=== PATIENT | male | born 1940 | race Caucasian/White ===

== ENCOUNTER 2018-01-13 08:35 | Inpatient (IN) | payer MEDICARE, BC ==
[~2018-01-13] VITALS: Ht 170.2 cm; Wt 69.4 kg
[2018-01-13] MEDS ORDERED: NEOMY/BACITRA/POLYMYXIN B OINT UD PACKET TP ONE ×2 (08:44→09:00)
[2018-01-13] MEDS ORDERED: MORPHINE SULFATE 4 MG/1 ML DISP.SYRIN ONE ×3 (08:45→09:40)
[2018-01-13] MEDS ORDERED: ONDANSETRON 4 MG/2 ML VIAL ONE (08:45)
[2018-01-13] MEDS ORDERED: GLIP5TAB13 PO (08:53)
[2018-01-13] MEDS ORDERED: CHOL20004 PO (08:53)
[2018-01-13] MEDS ORDERED: ASPI81TA31 PO (08:53)
[2018-01-13] MEDS ORDERED: ROSU5TAB PO (08:53)
[2018-01-13] MEDS ORDERED: IV NORMAL SALINE 500 ML BAG IV ONE (09:00)
[2018-01-13] MEDS ORDERED: ONDANSETRON 4 MG/2 ML VIAL IV ONE (09:00)
[2018-01-13] MEDS ORDERED: MORPHINE SULFATE 2 MG/1 ML DISP.SYRIN IV ONE ×3 (09:00→09:45)
[2018-01-13 09:07] LABS: BASOPHILS # (AUTO) 0.1 K/uL (0.0-8.0); BASOPHILS % (AUTO) 1.2 % (0.0-2.0); EOSINOPHILS # (AUTO) 0.1 K/uL (0.0-0.7); EOSINOPHILS % (AUTO) 1.6 % (0.0-7.0); HEMATOCRIT 42.7 % (36.7-47.1); HEMOGLOBIN 14.7 g/dL (12.5-16.3); LYMPHOCYTES # (AUTO) 1.6 K/uL (20.0-40.0); LYMPHOCYTES % (AUTO) 25.9 % (20.5-51.5); MEAN CORPUSCULAR HEMOGLOBIN 30.4 uug (23.8-33.4); MEAN CORPUSCULAR HGB CONC 34 g/dL (32.5-36.3); MEAN CORPUSCULAR VOLUME 88.4 fL (73.0-96.2); MONOCYTES # (AUTO) 0.5 K/uL (2.0-10.0); MONOCYTES % (AUTO) 8.2 % (0.0-11.0); NEUTROPHILS % (AUTO) 63.1 % (38.5-71.5); PLATELET COUNT (AUTO) 301 K/uL (152-348); RED BLOOD CELL COUNT(AUTO) 4.83 MIL/uL (4.06-5.63); WHITE BLOOD COUNT (AUTO) 6.3 K/uL (3.6-10.2)
[2018-01-13 09:11] LABS: CARBON DIOXIDE 27 mmol/L (21-32); CHLORIDE 101 mmol/L (98-107); CREATININE 1.2 mg/dL (0.6-1.3); GLUCOSE 183 mg/dL (74-106); POTASSIUM 4.4 mmol/L (3.5-5.1); UREA NITROGEN, BLOOD 12 mg/dL (7-18)
[2018-01-13 09:17] LABS: ALANINE AMINOTRANSFERASE 24 U/L (16-63); ALKALINE PHOSPHATASE 62 U/L (50-136); ASPARTATE AMINOTRANSFERASE 18 U/L (15-37); BILIRUBIN,DIRECT 0.1 mg/dL (0.0-0.2); BILIRUBIN,TOTAL 0.5 mg/dL (0.2-1.0); TOTAL PROTEIN, SERUM 7.5 g/dL (6.4-8.2)
--- NOTE | 2018-01-13 09:19 | NUR ---
CALLED [facility]ON FOR ORTHO CONSULT PER PT REQUEST.
--- NOTE | 2018-01-13 09:27 | NUR ---
GRETA Rutherford spoke to Dr Rodríguez for Tele admit.
--- NOTE | 2018-01-13 09:36 | NUR ---
RECEIVED REPORT FROM [facility] Addendum: 01/13/18 at 0937 by OABDI Mechanical fall, L hip Fx. Pt has history of hyperlipidemia and DM. Received 8mg morphine. Receiving 500ml bolus. Hep lock eric 20 R AC. Normal sinus rhythm on tele monitor.
--- NOTE | 2018-01-13 09:40 | NUR ---
PT COMPLAINING OF LEFT WRIST PAIN. MD AT BEDSIDE.
--- NOTE | 2018-01-13 09:45 | NUR ---
DR. CHARLES AT BEDSIDE TALKING TO PT AND PT
[2018-01-13] MEDS ORDERED: HYDROMORPHONE 1 MG/1 ML DISP.SYRIN ONE (09:56)
--- NOTE | 2018-01-13 09:59 | NUR ---
PT TRANSFERED TO FLOOR IN STABLE CONDITION
[2018-01-13] MEDS ORDERED: HYDROMORPHONE 1 MG/1 ML DISP.SYRIN IV ONE (10:00)
[2018-01-13] MEDS ORDERED: MAGNESIUM HYDROXIDE 30 ML LIQUID UDC PO PRN (10:30)
[2018-01-13] MEDS ORDERED: ONDANSETRON 4 MG/2 ML VIAL IV PRN (10:30)
[2018-01-13] MEDS ORDERED: Medication Not On Formulary EA (Rosuvastatin Calcium (Crestor) 1 TAB) PO SCH (10:30)
[2018-01-13] MEDS ORDERED: Z GUARD REMEDY PASTE 57 GM TUBE TOP PRN (10:30)
[2018-01-13] MEDS ORDERED: Medication Not On Formulary EA (Cholecalciferol (Vitamin D3) (Vitamin D CAPSULE) 1 CAP) PO SCH (10:30)
[2018-01-13] MEDS ORDERED: ZOLPIDEM 5 MG TABLET PO PRN (10:30)
[2018-01-13] MEDS: glipiZIDE 5 MG TABLET PO SCH ×3 (11:20→17:44)
[2018-01-13] MEDS: ATORVASTATIN 10 MG TABLET PO SCH ×2 (11:21→12:46)
[2018-01-13 11:59] VITALS: BP 128/81
[2018-01-13] MEDS: IV NS 1000 ML 1,000 ML IV PRN (12:46)
[2018-01-13] MEDS: HYDROMORPHONE 1 MG/1 ML DISP.SYRIN IV PRN ×3 (14:36→22:48)
--- NOTE | 2018-01-13 14:41 | NUR ---
medicated for left hip pain scale 12/25. lunch served. no plan for surgery today Addendum: 01/13/18 at 1442 by JIGNA CONTRERAS RN Amended: Links added.
--- NOTE | 2018-01-13 15:02 | NUR ---
left elbow abrasions cleansed with saline and covered with sterile bordered dressing Addendum: 01/13/18 at 1502 by JIGNA CONTRERAS RN Amended: Links added.
[2018-01-13 15:53] VITALS: BP 140/87
[2018-01-13] MEDS ORDERED: hydrALAZINE HCL 25 MG TABLET PO PRN (16:45)
--- NOTE | 2018-01-13 16:45 | NUR ---
report given to Sandra WRIGHT Addendum: 01/13/18 at 1715 by JIGNA CONTRERAS RN Amended: Links added.
[2018-01-13 19:52] VITALS: BP 128/85
--- NOTE | 2018-01-13 20:00 | NUR ---
RECEIVED PT ALERT AND ORIENTED X 3, IN NO ACUTE DISTRESS AT THIS TIME. PAIN MANAGEMENT WILL BE PROVIDED ORDERED. PT MADE AWARE OF PLAN OF CARE AND PLAN FOR SURGERY OF LEFT HIP IN AM. TELE MONITOR SINUS RHYTHM. WILL CONTINUE TO MONITOR AND OBTAIN CONSENT FOR PLANNED PROCEDURE WITH DR. ISLAS.
--- NOTE | 2018-01-13 21:30 | NUR ---
Pt signed consent for IM nailing of left femur fracture. Pt aware that he should be NPO after midnight.
[2018-01-14] VITALS (7 sets, daily range): BP systolic 121–154; BP diastolic 71–87
[2018-01-14] MEDS: HYDROMORPHONE 1 MG/1 ML DISP.SYRIN IV PRN ×2 (03:11→06:39)
[2018-01-14] MEDS: IV NS 1000 ML 1,000 ML IV PRN ×2 (03:11→21:13)
[2018-01-14 05:49] LABS: BASOPHILS # (AUTO) 0.1 K/uL (0.0-8.0); EOSINOPHILS % (AUTO) 0.6 % (0.0-7.0); HEMATOCRIT 35.3 % (36.7-47.1); HEMOGLOBIN 12.5 g/dL (12.5-16.3); LYMPHOCYTES # (AUTO) 1.4 K/uL (20.0-40.0); LYMPHOCYTES % (AUTO) 16.4 % (20.5-51.5); MEAN CORPUSCULAR HGB CONC 36 g/dL (32.5-36.3); MEAN CORPUSCULAR VOLUME 87.4 fL (73.0-96.2); MONOCYTES # (AUTO) 0.8 K/uL (2.0-10.0); MONOCYTES % (AUTO) 8.9 % (0.0-11.0); NEUTROPHILS # (AUTO) 6.2 K/uL (1.8-8.9); NEUTROPHILS % (AUTO) 73.1 % (38.5-71.5); PLATELET COUNT (AUTO) 251 K/uL (152-348); RED BLOOD CELL COUNT(AUTO) 4.04 MIL/uL (4.06-5.63); WHITE BLOOD COUNT (AUTO) 8.4 K/uL (3.6-10.2)
--- NOTE | 2018-01-14 06:00 | NUR ---
Pt kept NPO after midnight. Pain management provided as ordered. No s/s of acute distress. Pt aware of scheduled surgery at 0800. Safe environment implemented.
[2018-01-14 06:12] LABS: ALANINE AMINOTRANSFERASE 24 U/L (16-63); ALKALINE PHOSPHATASE 54 U/L (50-136); ASPARTATE AMINOTRANSFERASE 16 U/L (15-37); BILIRUBIN,TOTAL 0.6 mg/dL (0.2-1.0); CARBON DIOXIDE 26 mmol/L (21-32); CHLORIDE 99 mmol/L (98-107); CHOLESTEROL 117 mg/dL (<200); GLUCOSE 145 mg/dL (74-106); HDL CHOLESTEROL 52 mg/dL (40-60); MAGNESIUM 1.8 mg/dL (1.8-2.4); PHOSPHOROUS 3.4 mg/dL (2.5-4.9); POTASSIUM 4.2 mmol/L (3.5-5.1); TOTAL PROTEIN, SERUM 6.3 g/dL (6.4-8.2); TRIGLYCERIDES 65 MG/DL (30-150); UREA NITROGEN, BLOOD 10 mg/dL (7-18)
[2018-01-14 06:33] LABS: THYROID STIMULATING HORMONE 1.288 mIU/mL (0.358-3.740)
--- NOTE | 2018-01-14 07:30 | NUR ---
AWAKE ALERT AND VERBALLY RESPONSIVE ORIENTED X3, AT BEDSIDE . NO SIGNS OF PAIN OR DISTRESS. NPO FOR IM NAILING BY DR ISLAS AT 0800. NPO WITH NS AT 75 MLS/HR
--- NOTE | 2018-01-14 07:46 | NUR ---
TO OR WITH OR STAFF VIA BED. SR ON MONITOR
[2018-01-14] MEDS: glipiZIDE 5 MG TABLET PO SCH (08:30)
[2018-01-14] MEDS: CHOLECALCIFEROL 1,000 UNIT TABLET PO SCH (08:30)
[2018-01-14] MEDS ORDERED: FENTANYL CITRATE 100 MCG/2 ML AMPUL ONE (10:19)
[2018-01-14] MEDS ORDERED: GLIP5TAB13 PO (10:29)
[2018-01-14] MEDS ORDERED: DEXTROSE 50% 50 ML DISP.SYRIN IV PRN (10:30)
[2018-01-14] MEDS ORDERED: BISACODYL 5 MG TABLET.DR PO PRN (10:45)
[2018-01-14] MEDS ORDERED: FLEET ENEMA 133 ML BOTTLE RC PRN (10:45)
[2018-01-14] MEDS ORDERED: IV NS 1000 ML 1,000 ML IV ONE (10:45)
[2018-01-14] MEDS ORDERED: HYDROMORPHONE 1 MG/1 ML DISP.SYRIN ONE (10:51)
--- NOTE | 2018-01-14 12:00 | NUR ---
BACK FROM RECOVERY AWAKE AND VERBALLY RESPONSIVE WITH O2 AT 2L NC SATURATING 95%. LEFT HIP INCISION WITH DRESSING INTACT NOTED WITH MODERATE AMOUNT OF SEROUS DRAINAGE. GOOD PEDAL PULSES
[2018-01-14] MEDS ORDERED: SEVOFLURANE 250 ML BOTTLE IH ONE (12:10)
[2018-01-14] MEDS ORDERED: ONDANSETRON 4 MG/2 ML VIAL IV ONE (12:10)
[2018-01-14] MEDS ORDERED: CEFAZOLIN 1 G VIAL MC ONE (12:10)
[2018-01-14] MEDS ORDERED: IV NORMAL SALINE 1000 ML BAG IV ONE (12:10)
[2018-01-14] MEDS ORDERED: EPHEDRINE SULFATE 50 MG/ML AMPUL MC ONE (12:10)
[2018-01-14] MEDS ORDERED: DEXAMETHASONE SOD PHOSPHATE 4 MG INJ IV ONE (12:10)
[2018-01-14] MEDS ORDERED: PROPOFOL 200 MG/20 ML BOTTLE IV ONE (12:10)
[2018-01-14] MEDS ORDERED: LIDOCAINE-MPF 2% 5 ML VIAL MC ONE (12:10)
[2018-01-14] MEDS: BLOOD SUGAR DIAGNOSTIC 1 EACH STRIP VI SCH ×3 (12:14→21:02)
[2018-01-14] MEDS: INSULIN REGULAR, HUMAN 300 UNIT/3 ML VIAL SQ PRN ×3 (12:16→21:14)
--- NOTE | 2018-01-14 14:07 | NUR ---
DRESSING CHANGED BY RECOVERY NURSE
[2018-01-14] MEDS: CEFAZOLIN 1 G in PREMIXED 1 EACH IV SCH (16:31)
--- NOTE | 2018-01-14 17:18 | NUR ---
NO SS OF ACUTE PAIN OR DISTRESS, PAIN MANAGEMENT STATUS POST IM NAILING. PLAN TO START PHYSICAL THERAPY IN AM PER ORTHO
[2018-01-14] MEDS: ATORVASTATIN 10 MG TABLET PO SCH (21:02)
[2018-01-14] MEDS: DOCUSATE SODIUM 100 MG CAPSULE PO SCH (21:02)
[2018-01-15] MEDS: MORPHINE SULFATE 4 MG/1 ML DISP.SYRIN IV PRN ×3 (00:03→13:35)
[2018-01-15 00:36] VITALS: BP 113/66
[2018-01-15] MEDS: CEFAZOLIN 1 G in PREMIXED 1 EACH IV SCH (00:42)
[2018-01-15 04:36] VITALS: BP 120/70
[2018-01-15 06:22] LABS: BASOPHILS % (AUTO) 0.4 % (0.0-2.0); EOSINOPHILS % (AUTO) 0.1 % (0.0-7.0); HEMATOCRIT 31.7 % (36.7-47.1); HEMOGLOBIN 10.9 g/dL (12.5-16.3); LYMPHOCYTES # (AUTO) 1.5 K/uL (20.0-40.0); LYMPHOCYTES % (AUTO) 15.8 % (20.5-51.5); MEAN CORPUSCULAR HEMOGLOBIN 30.4 uug (23.8-33.4); MEAN CORPUSCULAR HGB CONC 34 g/dL (32.5-36.3); MEAN CORPUSCULAR VOLUME 88.3 fL (73.0-96.2); MONOCYTES # (AUTO) 1.3 K/uL (2.0-10.0); MONOCYTES % (AUTO) 13.7 % (0.0-11.0); NEUTROPHILS # (AUTO) 6.5 K/uL (1.8-8.9); PLATELET COUNT (AUTO) 236 K/uL (152-348); WHITE BLOOD COUNT (AUTO) 9.2 K/uL (3.6-10.2)
[2018-01-15] MEDS: BLOOD SUGAR DIAGNOSTIC 1 EACH STRIP VI SCH (06:38)
[2018-01-15 06:41] LABS: CARBON DIOXIDE 28 mmol/L (21-32); CHLORIDE 103 mmol/L (98-107); GLUCOSE 138 mg/dL (74-106); PHOSPHOROUS 3.3 mg/dL (2.5-4.9); POTASSIUM 4.4 mmol/L (3.5-5.1); UREA NITROGEN, BLOOD 9 mg/dL (7-18)
[2018-01-15] MEDS ORDERED: MIRALAX 17 GM POWD.PACK PO PRN (08:00)
[2018-01-15] MEDS: glipiZIDE 5 MG TABLET PO SCH ×3 (08:58→17:00)
[2018-01-15] MEDS: ASPIRIN 81 MG TAB.CHEW PO SCH (08:58)
[2018-01-15] MEDS: CHOLECALCIFEROL 1,000 UNIT TABLET PO SCH (08:58)
[2018-01-15] MEDS: DOCUSATE SODIUM 100 MG CAPSULE PO SCH ×2 (08:58→20:43)
[2018-01-15 11:47] VITALS: BP 118/73
[2018-01-15 15:24] VITALS: BP 127/73
[2018-01-15 17:08] VITALS: BP 147/81
[2018-01-15] MEDS: ACETAMINOPHEN 325 MG TABLET PO PRN (17:42)
[2018-01-15] MEDS: HYDROCODONE/APAP 10-325 MG TABLET PO PRN (17:45)
[2018-01-15] MEDS: IV NS 1000 ML 1,000 ML IV PRN (19:42)
[2018-01-15 19:59] VITALS: BP 103/56
[2018-01-15] MEDS: ATORVASTATIN 10 MG TABLET PO SCH (20:43)
[2018-01-16] MEDS: HYDROCODONE/APAP 10-325 MG TABLET PO PRN (03:14)
[2018-01-16 05:04] VITALS: BP 105/67
--- NOTE | 2018-01-16 05:27 | NUR ---
Patient rested well in between care; offered turned q2h; but sometimes refusing; educated patient regarding regular turning; MOM given last night for constipation; medicated x1 Kayla this AM; will d/c john edwards this AM.
--- NOTE | 2018-01-16 06:31 | NUR ---
Rosa removed aseptically; dressing changed to left hip; continue to monitor; will endorse.
[2018-01-16 06:55] LABS: BASOPHILS # (AUTO) 0.1 K/uL (0.0-8.0); BASOPHILS % (AUTO) 0.9 % (0.0-2.0); EOSINOPHILS % (AUTO) 0.4 % (0.0-7.0); HEMATOCRIT 31.7 % (36.7-47.1); HEMOGLOBIN 10.9 g/dL (12.5-16.3); LYMPHOCYTES # (AUTO) 1.9 K/uL (20.0-40.0); MEAN CORPUSCULAR HEMOGLOBIN 30.4 uug (23.8-33.4); MEAN CORPUSCULAR HGB CONC 35 g/dL (32.5-36.3); MEAN CORPUSCULAR VOLUME 88.1 fL (73.0-96.2); MONOCYTES # (AUTO) 1.1 K/uL (2.0-10.0); MONOCYTES % (AUTO) 11.1 % (0.0-11.0); NEUTROPHILS # (AUTO) 6.8 K/uL (1.8-8.9); NEUTROPHILS % (AUTO) 68.6 % (38.5-71.5); PLATELET COUNT (AUTO) 243 K/uL (152-348); RED BLOOD CELL COUNT(AUTO) 3.59 MIL/uL (4.06-5.63); WHITE BLOOD COUNT (AUTO) 9.9 K/uL (3.6-10.2)
[2018-01-16 07:15] LABS: CARBON DIOXIDE 29 mmol/L (21-32); CHLORIDE 100 mmol/L (98-107); GLUCOSE 156 mg/dL (74-106); PHOSPHOROUS 2.9 mg/dL (2.5-4.9); POTASSIUM 4.2 mmol/L (3.5-5.1); UREA NITROGEN, BLOOD 13 mg/dL (7-18)
[2018-01-16] MEDS ORDERED: IV NS 1000 ML 1,000 ML IV PRN (07:31)
[2018-01-16] MEDS: CHOLECALCIFEROL 1,000 UNIT TABLET PO SCH (08:25)
[2018-01-16] MEDS: glipiZIDE 5 MG TABLET PO SCH ×2 (08:25→12:06)
[2018-01-16] MEDS: DOCUSATE SODIUM 100 MG CAPSULE PO SCH (08:25)
[2018-01-16] MEDS: ASPIRIN 81 MG TAB.CHEW PO SCH (08:25)
[2018-01-16] MEDS: MORPHINE SULFATE 4 MG/1 ML DISP.SYRIN IV PRN (09:18)
[2018-01-16 11:39] VITALS: BP 119/63
[2018-01-16] MEDS ORDERED: ATOR10TA PO (11:42)
[2018-01-16] MEDS ORDERED: POLY17PO4 PO (11:42)
[2018-01-16] MEDS ORDERED: HYDR-4354 PO (11:42)
[2018-01-16] MEDS ORDERED: HYDR25TA86 PO (11:42)
[2018-01-16] MEDS ORDERED: MENT71OI TOP (11:42)
[2018-01-16] MEDS ORDERED: Morphine Sulfate Inj IV (11:42)
[2018-01-16] MEDS ORDERED: GLIP5TAB13 PO (11:42)
[2018-01-16] MEDS ORDERED: ONDA4VIA23 IV (11:42)
[2018-01-16] MEDS ORDERED: CHOL10002 PO (11:42)
[2018-01-16] MEDS ORDERED: MAGN400O6 PO (11:42)
[2018-01-16] MEDS ORDERED: Sodium Phosphate Fleet RC (11:42)
[2018-01-16] MEDS ORDERED: ZOLP5TAB8 PO (11:42)
[2018-01-16] MEDS ORDERED: ACET325T53 PO (11:42)
[2018-01-16] MEDS ORDERED: DOCU100C36 PO (11:42)
[2018-01-16] MEDS ORDERED: BISA5TAB13 PO (11:42)
[2018-01-16] MEDS: ACETAMINOPHEN 325 MG TABLET PO PRN (14:27)
--- NOTE | 2018-01-16 15:00 | NUR ---
PT REFUSED TO HAVE PICTURES TAKEN AT THIS TIME. PER ASSESSMENT, THE WOUNDS WERE ON BILATERAL ELBOWS AND LEFT KNEE ARE SCABED OVER, CLEAN, NO DRAINAGE.
--- NOTE | 2018-01-16 15:15 | NUR ---
Pt DC to ARU, pt is stable to dc and was dc with all exit care packet and belongings. ID band removed, incision area is clean with no signs of redness and discharge. Report given to ARU nurse. Pt transferred via bed.
[2018-01-16] MEDS ORDERED: BLOOD SUGAR DIAGNOSTIC 1 EACH STRIP VI SCH (16:30)
== END 2018-01-16 15:15 | DRG 481 ==
LOC: ER 08:35 → MED 09:43 → TELE 10:30 → MED 01-15 16:29
PROVIDERS: ADMIT Internal Medicine; ATTEND Internal Medicine
PROC: 0QS706Z Reposition Left Upper Femur with Intramedullary Internal Fixation Device, Open Approach (ICD-10-PCS; principal; 2018-01-14 08:40)
DX: S72.142A Displaced intertrochanteric fracture of left femur, initial encounter for closed fracture (principal); E87.1 Hypo-osmolality and hyponatremia; E44.1 Mild protein-calorie malnutrition; E11.65 Type 2 diabetes mellitus with hyperglycemia; E78.5 Hyperlipidemia, unspecified; E83.51 Hypocalcemia; E86.0 Dehydration; I10 Essential (primary) hypertension; M19.90 Unspecified osteoarthritis, unspecified site; Z79.84 Long term (current) use of oral hypoglycemic drugs; W19.XXXA Unspecified fall, initial encounter; Y93.9 Activity, unspecified; Y92.69 Other specified industrial and construction area as the place of occurrence of the external cause; E88.09 Other disorders of plasma-protein metabolism, not elsewhere classified; Z68.24 Body mass index [BMI] 24.0-24.9, adult
CPT/HCPCS: 36415; 70030-TC; 71045; 72170; 73110; 73502; 73503; 73551; 83735; 84100; 84443; 85025; 85730; 93005; 97110; 97530; A4649; A4663; C1713; C1769; G0378; J0690; J1100; J1170; J2270; J2405; J3010; J3490; J7030; J7040

== ENCOUNTER 2018-01-16 15:38 | Inpatient (IN) | payer MEDICARE, BC ==
[~2018-01-16] VITALS: Ht 170.2 cm; Wt 69.4 kg
[~2018-01-16 15:38] MED LIST: ACET325T53 PO; ASPI81TA31 PO; ATOR10TA PO; BISA5TAB13 PO; CHOL10002 PO; CHOL20004 PO; DOCU100C36 PO; GLIP5TAB13 PO; HYDR-4354 PO; HYDR25TA86 PO; MAGN400O6 PO; MENT71OI TOP; Morphine Sulfate Inj IV; ONDA4VIA23 IV; POLY17PO4 PO; ROSU5TAB PO; Sodium Phosphate Fleet RC; ZOLP5TAB8 PO
--- NOTE | 2018-01-16 15:40 | NUR ---
ADMITTED TO UNIT FROM MED SURG. BROUGHT DOWN IN BED WITH AT BEDSIDE. VSS 02 SAT 94% ON ROOM AIR. NO C/O PAIN OR DISTRESS NOTED. ORIENTED TO ROOM AND SURROUNDINGS
[2018-01-16] MEDS ORDERED: MAGNESIUM HYDROXIDE 30 ML LIQUID UDC PO PRN ×2 (15:45→17:45)
[2018-01-16] MEDS ORDERED: Z GUARD REMEDY PASTE 57 GM TUBE TOP PRN ×2 (15:45→18:00)
[2018-01-16] MEDS ORDERED: ONDANSETRON 4 MG/2 ML VIAL IV PRN ×2 (15:45→17:45)
[2018-01-16] MEDS ORDERED: ACETAMINOPHEN 325 MG TABLET PO PRN ×2 (15:45→17:45)
[2018-01-16 16:14] VITALS: BP 120/66
[2018-01-16] MEDS ORDERED: HYDROCODONE/APAP 10-325 MG TABLET PO PRN (17:45)
[2018-01-16] MEDS ORDERED: THERAHONEY GEL 1.5 OZ TUBE TOP PRN (17:45)
[2018-01-16] MEDS ORDERED: MORPHINE SULFATE 2 MG/1 ML DISP.SYRIN IV PRN (17:45)
[2018-01-16] MEDS ORDERED: hydrALAZINE HCL 25 MG TABLET PO PRN (17:45)
[2018-01-16] MEDS ORDERED: MIRALAX 17 GM POWD.PACK PO PRN (17:45)
[2018-01-16] MEDS ORDERED: BISACODYL 5 MG TABLET.DR PO PRN (17:45)
[2018-01-16] MEDS ORDERED: ZOLPIDEM 5 MG TABLET PO PRN (17:45)
--- NOTE | 2018-01-16 20:05 | NUR ---
Patient received in bed. AAO X4. No acute distress or SOB noted. Able to makes needs known. On room air. His family were at the bedside. Brief assessment done. No Complain of pain at this time. Has IV line on his LT forearm G 22. No sign of inflammation noted. Safety measures maintained. Bed in low position, brake on, side rails upx2. Call light and personal belongings within reach. Continue to monitor.
[2018-01-16 20:13] VITALS: BP 140/78
[2018-01-16] MEDS: DOCUSATE SODIUM 100 MG CAPSULE PO SCH (20:26)
[2018-01-16] MEDS: ATORVASTATIN 10 MG TABLET PO SCH (20:26)
[2018-01-16] MEDS ORDERED: DOCUSATE SODIUM 100 MG CAPSULE PO SCH (21:00)
[2018-01-16] MEDS ORDERED: BLOOD SUGAR DIAGNOSTIC 1 EACH STRIP VI SCH (21:00)
[2018-01-16] MEDS: HYDROCODONE/APAP 5-325MG TABLET PO PRN (21:52)
[2018-01-16] MEDS ORDERED: DEXTROSE 50% 50 ML DISP.SYRIN IV PRN (22:45)
--- NOTE | 2018-01-16 23:00 | NUR ---
Patient has BS 170 without any order for Insulin and related sliding scale. Called [facility] and contacted on-call Doctor, Dr. Iglesia Sev[place]. Dr. Parekh put the new order of sliding scale. Continue to monitor.
[2018-01-17 06:12] VITALS: BP 125/68
--- NOTE | 2018-01-17 06:30 | NUR ---
Patient developed high heart rate 120-135, BP: 125/65, RR:19, T: 98.2, O2 Sat: 96%. Patient was stable, AAO x4, pain level at tolerable level. Notified Dr. Hurtado about patient condition. No order was given. Continue to monitor.
[2018-01-17] MEDS: PANTOPRAZOLE SODIUM 40 MG TABLET.DR PO SCH (06:38)
[2018-01-17] MEDS: HYDROCODONE/APAP 5-325MG TABLET PO PRN ×2 (06:39→21:32)
[2018-01-17] MEDS: BLOOD SUGAR DIAGNOSTIC 1 EACH STRIP VI SCH ×4 (06:46→20:31)
--- NOTE | 2018-01-17 06:50 | NUR ---
Patient checked again, still same with no change, high heart rate 120-135. Pain is 6 out of 10. pain medication given. Continue monitor and will endorse to the day shift nurse.
[2018-01-17 07:46] LABS: BASOPHILS # (AUTO) 0.1 K/uL (0.0-8.0); BASOPHILS % (AUTO) 0.7 % (0.0-2.0); EOSINOPHILS % (AUTO) 0.5 % (0.0-7.0); HEMATOCRIT 31.3 % (36.7-47.1); HEMOGLOBIN 10.7 g/dL (12.5-16.3); LYMPHOCYTES # (AUTO) 1.2 K/uL (20.0-40.0); LYMPHOCYTES % (AUTO) 13.2 % (20.5-51.5); MEAN CORPUSCULAR HEMOGLOBIN 30.3 uug (23.8-33.4); MEAN CORPUSCULAR HGB CONC 34 g/dL (32.5-36.3); MONOCYTES # (AUTO) 0.7 K/uL (2.0-10.0); MONOCYTES % (AUTO) 8.3 % (0.0-11.0); NEUTROPHILS # (AUTO) 6.8 K/uL (1.8-8.9); NEUTROPHILS % (AUTO) 77.3 % (38.5-71.5); PLATELET COUNT (AUTO) 258 K/uL (152-348); RED BLOOD CELL COUNT(AUTO) 3.51 MIL/uL (4.06-5.63); WHITE BLOOD COUNT (AUTO) 8.8 K/uL (3.6-10.2)
[2018-01-17 08:00] VITALS: BP 121/77
[2018-01-17 08:01] LABS: CARBON DIOXIDE 27 mmol/L (21-32); CHLORIDE 98 mmol/L (98-107); CHOLESTEROL 103 mg/dL (<200); GLUCOSE 146 mg/dL (74-106); HDL CHOLESTEROL 46 mg/dL (40-60); MAGNESIUM 2.1 mg/dL (1.8-2.4); PHOSPHOROUS 3.1 mg/dL (2.5-4.9); TRIGLYCERIDES 65 MG/DL (30-150); UREA NITROGEN, BLOOD 13 mg/dL (7-18)
[2018-01-17] MEDS: CHOLECALCIFEROL 1,000 UNIT TABLET PO SCH (08:40)
[2018-01-17] MEDS: ASPIRIN 81 MG TAB.CHEW PO SCH (08:40)
[2018-01-17] MEDS: glipiZIDE 5 MG TABLET PO SCH ×3 (08:41→16:32)
[2018-01-17] MEDS: INSULIN REGULAR, HUMAN 300 UNIT/3 ML VIAL SQ PRN ×4 (08:43→20:35)
--- NOTE | 2018-01-17 14:02 | NUR ---
INTERDISCIPLINARY TEAM CONFERENCE
--- NOTE | 2018-01-17 14:28 | NUR ---
Received an order from Dr. Ramos for Gordo QUICK.
--- NOTE | 2018-01-17 14:30 | NUR ---
Notified GREEN PROMOTIONS SPECIALIST Fitz Baumann who made his rounds regarding report of night order selector nurse that pt had episode of tachycardia. Per GREEN PROMOTIONS SPECIALIST will continue to monitor HR is ok at this time.
[2018-01-17 16:00] VITALS: BP 143/76
[2018-01-17] MEDS: GLUCERNA SHAKE VANILLA 237 ML CAN PO SCH (17:27)
--- NOTE | 2018-01-17 18:50 | NUR ---
Patient noted with fever 100.8 given tylenol PRN as ordered which lowered temp to 99.3. Also patient complained of SOB, BP 121/69, HR 96. O2 sat 96% at room air, RR 19. No complain of any pain. Put patient on O2 via NC at 2LPM for comfort and per patient he is relieved. Notified ELECTRICAL ELECTRONICS ENGINEERS Fitz Baumann and said he already put orders in.
[2018-01-17] MEDS ORDERED: ALBUTEROL SULFATE 2.5 MG/3 ML NEBU NEB PRN (19:15)
[2018-01-17 20:08] VITALS: BP 142/79
[2018-01-17 20:17] LABS: BASOPHILS # (AUTO) 0.1 K/uL (0.0-8.0); BASOPHILS % (AUTO) 0.8 % (0.0-2.0); EOSINOPHILS # (AUTO) 0.1 K/uL (0.0-0.7); EOSINOPHILS % (AUTO) 1.1 % (0.0-7.0); HEMATOCRIT 29.8 % (36.7-47.1); HEMOGLOBIN 10.4 g/dL (12.5-16.3); LYMPHOCYTES # (AUTO) 1.5 K/uL (20.0-40.0); LYMPHOCYTES % (AUTO) 18.7 % (20.5-51.5); MEAN CORPUSCULAR HEMOGLOBIN 30.7 uug (23.8-33.4); MEAN CORPUSCULAR HGB CONC 35 g/dL (32.5-36.3); MEAN CORPUSCULAR VOLUME 87.6 fL (73.0-96.2); MONOCYTES # (AUTO) 0.7 K/uL (2.0-10.0); MONOCYTES % (AUTO) 9.2 % (0.0-11.0); NEUTROPHILS # (AUTO) 5.6 K/uL (1.8-8.9); NEUTROPHILS % (AUTO) 70.2 % (38.5-71.5); PLATELET COUNT (AUTO) 288 K/uL (152-348)
[2018-01-17 20:18] LABS: CARBON DIOXIDE 28 mmol/L (21-32); CHLORIDE 98 mmol/L (98-107); CREATININE 1.1 mg/dL (0.6-1.3); GLUCOSE 156 mg/dL (74-106); UREA NITROGEN, BLOOD 14 mg/dL (7-18)
[2018-01-17] MEDS: ATORVASTATIN 10 MG TABLET PO SCH (20:31)
[2018-01-17] MEDS: DOCUSATE SODIUM 100 MG CAPSULE PO SCH (20:31)
--- NOTE | 2018-01-17 20:54 | NUR ---
Received pt at beginning of shift in bed, AAO x 4 with family member at bedside. No acute distress noted. Verbally responsive and able to make needs known. Noted with TMAX 99.3 F at beginning of shift, re-checked at noted to be 98.6 F orally. VSS. All safety measures and fall precautions maintained. C/O "tolerable" pain on left hip. Call light and all personal belongings within reach. Will continue to monitor.
[2018-01-17] MEDS ORDERED: IV NORMAL SALINE 500 ML BAG IV ONE (22:20)
[2018-01-18 00:15] LABS: *BILIRUBIN,URIN NEGATIVE (NEGATIVE); *BLOOD, URINE NEGATIVE (NEGATIVE); *CLARITY,URINE CLEAR (CLEAR); *COLOR,URINE YELLOW (YELLOW); *KETONES,URINE NEGATIVE (NEGATIVE); *PROTEIN,URINE NEGATIVE (NEGATIVE); *UROBILINOGEN,URINE 0.2 E.U./dl (NORMAL); LEUKOCYTE ESTERASE ,URINE NEGATIVE (NEGATIVE); NITRITE, URINE NEGATIVE (NEGATIVE); UGLUCOSE NEGATIVE (NEGATIVE)
[2018-01-18 00:37] LABS: BACTERIA,URINE NONE SEEN /HPF (NONE SEEN); RBC,URINE NONE SEEN /HPF (0-3); SQUAMOUS EPITHELIAL CELL,UR MANY /HPF (NONE SEEN); WBC,URINE NONE SEEN /HPF (0-3)
[2018-01-18 05:49] VITALS: BP 142/73
[2018-01-18] MEDS: PANTOPRAZOLE SODIUM 40 MG TABLET.DR PO SCH (06:03)
[2018-01-18] MEDS: BLOOD SUGAR DIAGNOSTIC 1 EACH STRIP VI SCH ×4 (06:56→21:29)
--- NOTE | 2018-01-18 08:00 | NUR ---
Patient awake, alert, not in any form of acute distress. He denies any pain or discomfort at this time. Call light placed within reach. Assisted with his needs.
[2018-01-18 08:17] VITALS: BP 120/77
[2018-01-18] MEDS: CHOLECALCIFEROL 1,000 UNIT TABLET PO SCH (08:39)
[2018-01-18] MEDS: glipiZIDE 5 MG TABLET PO SCH ×3 (08:39→17:07)
[2018-01-18] MEDS: ASPIRIN 81 MG TAB.CHEW PO SCH (08:39)
[2018-01-18] MEDS: HYDROCODONE/APAP 5-325MG TABLET PO PRN (08:41)
[2018-01-18] MEDS: INSULIN REGULAR, HUMAN 300 UNIT/3 ML VIAL SQ PRN ×4 (08:51→21:38)
[2018-01-18] MEDS: GLUCERNA SHAKE VANILLA 237 ML CAN PO SCH ×3 (08:53→17:09)
[2018-01-18] MEDS ORDERED: NORMAL SALINE NASAL 45 ML BOTTLE NS PRN (14:00)
[2018-01-18] MEDS: HYDROCODONE/APAP 5-325MG TABLET PO SCH ×2 (17:08→21:19)
[2018-01-18 20:00] VITALS: BP 137/74
--- NOTE | 2018-01-18 20:50 | NUR ---
Patient received in bed. AAO X4. No acute distress or SOB noted. Able to makes needs known. On room air. His family were at the bedside. Brief assessment done. No Complain of pain at this time. Has IV line on his LT forearm G 22. No sign of inflammation noted. His family asking to transfer the patient to the dinning room to sit with them for dinner. Assisted patient to the dinning room via wheelchair. Safety measures maintained. After half an hour, assisted patient to the bed. Put DVT pump in place. Bed in low position, brake on, side rails upx2. Call light and personal belongings within reach. Continue to monitor.
[2018-01-18] MEDS: DOCUSATE SODIUM 100 MG CAPSULE PO SCH (21:19)
[2018-01-18] MEDS: ATORVASTATIN 10 MG TABLET PO SCH (21:19)
[2018-01-19] MEDS: ZOLPIDEM 5 MG TABLET PO PRN (01:58)
--- NOTE | 2018-01-19 06:00 | NUR ---
New dressing applied with bordered gauze. No sign and symptom of infection at surgical site. Yoan are intact. Surgical site kept clean and dry. Will continue to monitor.
[2018-01-19] MEDS: PANTOPRAZOLE SODIUM 40 MG TABLET.DR PO SCH (06:52)
[2018-01-19] MEDS: BLOOD SUGAR DIAGNOSTIC 1 EACH STRIP VI SCH ×4 (07:04→20:59)
--- NOTE | 2018-01-19 07:28 | NUR ---
End of the shift note Patient was stable last night. VS stable. No sign of acute distress or SOB noted. On room air. Complained of pain, PRN pain medication was given. Medication given as ordered. Dressing changed. Safety measures maintained. Accucheck done, @ 2100 BS: 163 with 3 units insulin coverage based on sliding scale, @ 0700 BS: 138.Fall precaution maintained. kept him clean and dry. All needs attended promptly. Bed brake and alarm on, side rails upx2. Call light and personal belonging within reach. Continue to monitor and will endorse to the day shift nurse accordingly.
[2018-01-19 07:39] VITALS: BP 136/77
[2018-01-19] MEDS: HYDROCODONE/APAP 5-325MG TABLET PO SCH ×4 (08:18→21:01)
[2018-01-19] MEDS: glipiZIDE 5 MG TABLET PO SCH ×3 (08:18→17:23)
[2018-01-19] MEDS: CHOLECALCIFEROL 1,000 UNIT TABLET PO SCH (08:18)
[2018-01-19] MEDS: ASPIRIN 81 MG TAB.CHEW PO SCH (08:19)
[2018-01-19] MEDS: GLUCERNA SHAKE VANILLA 237 ML CAN PO SCH ×3 (08:29→17:28)
[2018-01-19] MEDS: INSULIN REGULAR, HUMAN 300 UNIT/3 ML VIAL SQ PRN ×3 (12:10→21:05)
--- NOTE | 2018-01-19 16:01 | NUR ---
INTERDISCIPLINARY TEAM CONFERENCE
[2018-01-19 16:07] VITALS: BP 121/70
--- NOTE | 2018-01-19 19:15 | NUR ---
Received patient in bed. at bedside. Alert and verbally responsive. Able to make needs known. Denies any pain and discomfort. No acute distress. No SOB. Surgery site dressing is clean and intact. No s/s of drainage. Bruising noted at site. IV on left lower forearm. Patent and intact. Kept clean and dry. All needs attended to promptly. Call light within reach. Will continue to monitor.
[2018-01-19 20:00] VITALS: BP 133/82
[2018-01-19] MEDS: DOCUSATE SODIUM 100 MG CAPSULE PO SCH (21:00)
[2018-01-19] MEDS: ATORVASTATIN 10 MG TABLET PO SCH (21:00)
[2018-01-20] MEDS: HYDROCODONE/APAP 5-325MG TABLET PO PRN (01:32)
[2018-01-20 05:47] VITALS: BP 126/83
[2018-01-20] MEDS: PANTOPRAZOLE SODIUM 40 MG TABLET.DR PO SCH (06:31)
[2018-01-20] MEDS: BLOOD SUGAR DIAGNOSTIC 1 EACH STRIP VI SCH ×4 (06:33→20:36)
--- NOTE | 2018-01-20 06:46 | NUR ---
Patient slept comfortably throughout the night. No c/o pain and discomfort. No acute distress. No SOB. Kept clean and dry. VS stable. BS 140. Will endorse to day shift nurse. All needs attended to promptly. Call light within reach. Will continue to monitor.
[2018-01-20] MEDS: HYDROCODONE/APAP 5-325MG TABLET PO SCH ×4 (08:34→20:27)
[2018-01-20] MEDS: CHOLECALCIFEROL 1,000 UNIT TABLET PO SCH (08:34)
[2018-01-20] MEDS: ASPIRIN 81 MG TAB.CHEW PO SCH (08:35)
[2018-01-20] MEDS: glipiZIDE 5 MG TABLET PO SCH ×3 (08:35→17:09)
[2018-01-20] MEDS: GLUCERNA SHAKE VANILLA 237 ML CAN PO SCH ×3 (08:43→17:00)
[2018-01-20] MEDS: INSULIN REGULAR, HUMAN 300 UNIT/3 ML VIAL SQ PRN (12:06)
[2018-01-20 18:16] VITALS: BP 155/75
--- NOTE | 2018-01-20 20:03 | NUR ---
Patient received in bed. AAO X4. No acute distress or SOB noted. Able to makes needs known. On room air. His family were at the bedside. Brief assessment done. VS stable. Complained of a tolerable pain at this time. No sign of inflammation noted. Safety measures maintained. Put DVT pump in place. Bed in low position, brake on, side rails upx2. Call light and personal belongings within reach. Continue to monitor.
[2018-01-20 20:09] VITALS: BP 140/78
[2018-01-20] MEDS: ATORVASTATIN 10 MG TABLET PO SCH (20:27)
[2018-01-20] MEDS: DOCUSATE SODIUM 100 MG CAPSULE PO SCH (20:27)
[2018-01-21] MEDS: ZOLPIDEM 5 MG TABLET PO PRN (01:44)
[2018-01-21 05:58] VITALS: BP 131/76
[2018-01-21] MEDS: PANTOPRAZOLE SODIUM 40 MG TABLET.DR PO SCH (06:25)
[2018-01-21] MEDS: BLOOD SUGAR DIAGNOSTIC 1 EACH STRIP VI SCH ×4 (06:37→21:00)
--- NOTE | 2018-01-21 06:47 | NUR ---
End of the shift note Patient was stable throughout the shift. VS stable. No sign of acute distress or SOB noted. On room air. Complained of pain. Medication given as ordered. Dressing changed. Safety measures maintained. Accucheck done, @ 2100 BS: 129, no insulin coverage based on sliding scale, @ 0700 BS: 146. Fall precaution maintained. kept him clean and dry. All needs attended promptly. Bed brake and alarm on, side rails upx2. Call light and personal belonging within reach. Continue to monitor and will endorse to the day shift nurse accordingly.
--- NOTE | 2018-01-21 06:50 | NUR ---
New dressing applied with bordered gauze. No sign and symptom of infection at surgical site. Surgical site kept clean and dry. Will continue to monitor.
[2018-01-21 08:00] VITALS: BP 131/71
[2018-01-21] MEDS: ASPIRIN 81 MG TAB.CHEW PO SCH (08:30)
[2018-01-21] MEDS: glipiZIDE 5 MG TABLET PO SCH ×3 (08:31→17:15)
[2018-01-21] MEDS: CHOLECALCIFEROL 1,000 UNIT TABLET PO SCH (08:31)
[2018-01-21] MEDS: GLUCERNA SHAKE VANILLA 237 ML CAN PO SCH ×3 (08:32→17:15)
[2018-01-21] MEDS: HYDROCODONE/APAP 5-325MG TABLET PO SCH ×4 (08:32→21:02)
[2018-01-21] MEDS: INSULIN REGULAR, HUMAN 300 UNIT/3 ML VIAL SQ PRN ×3 (08:37→21:02)
--- NOTE | 2018-01-21 09:19 | NUR ---
Patient out of bed, sitting on the wheelchair doing exercises with OT, not in any form of distress. No complain of any pain or discomfort at this time.
[2018-01-21 16:34] VITALS: BP 142/70
--- NOTE | 2018-01-21 17:30 | NUR ---
Patient refused to take his scheduled [place] for 5PM, patients states no pain at this time.
--- NOTE | 2018-01-21 19:16 | NUR ---
Received patient in bed. at bedside. Alert and verbally responsive. Able to make needs known. Denies any pain and discomfort. No acute distress. No SOB. Kept clean and dry. All needs attended to promptly. Call light within reach. Will continue to monitor.
[2018-01-21 20:00] VITALS: BP 135/71
[2018-01-21] MEDS: DOCUSATE SODIUM 100 MG CAPSULE PO SCH (20:57)
[2018-01-21] MEDS: ATORVASTATIN 10 MG TABLET PO SCH (20:57)
--- NOTE | 2018-01-22 05:26 | NUR ---
Patient complain of itch at surgical site. No s/s of infection noted. Dr. Porter made aware with new orders noted and carried out. Will continue to monitor.
[2018-01-22] MEDS ORDERED: diphenhydrAMINE 25 MG CAP PO ONE (06:04)
[2018-01-22] MEDS: PANTOPRAZOLE SODIUM 40 MG TABLET.DR PO SCH (06:08)
[2018-01-22] MEDS: diphenhydrAMINE 25 MG CAP PO PRN ×2 (06:08→21:40)
[2018-01-22 06:41] VITALS: BP 130/70
--- NOTE | 2018-01-22 06:44 | NUR ---
Patient slept comfortably throughout the night. No c/o pain and discomfort. No acute distress. Dressing to left hip changed. Kept clean and dry. BS is 153. Will endorse to day shift nurse. All needs attended to promptly. Call light within reach. Will continue monitor.
[2018-01-22] MEDS: BLOOD SUGAR DIAGNOSTIC 1 EACH STRIP VI SCH ×4 (06:46→20:56)
[2018-01-22 08:27] VITALS: BP 132/68
[2018-01-22] MEDS: ASPIRIN 81 MG TAB.CHEW PO SCH (08:29)
[2018-01-22] MEDS: CHOLECALCIFEROL 1,000 UNIT TABLET PO SCH (08:29)
[2018-01-22] MEDS: HYDROCODONE/APAP 5-325MG TABLET PO SCH ×3 (08:30→17:00)
[2018-01-22] MEDS: glipiZIDE 5 MG TABLET PO SCH ×3 (08:30→17:27)
--- NOTE | 2018-01-22 08:30 | NUR ---
Patient awake, alert, verbally responsive, not in any form of acute distress. at bedside. Patient done having breakfast and took due medications and tolerated well. Assisted with his needs. Call light placed within reach.
[2018-01-22] MEDS: INSULIN REGULAR, HUMAN 300 UNIT/3 ML VIAL SQ PRN ×3 (08:33→21:07)
[2018-01-22] MEDS: GLUCERNA SHAKE VANILLA 237 ML CAN PO SCH ×3 (08:37→17:34)
--- NOTE | 2018-01-22 09:15 | NUR ---
Patient up ambulating with walker with OT. No complaints at this time and not in distress.
--- NOTE | 2018-01-22 13:11 | NUR ---
Patient refused [place] due at this time. Patient stated that he is not in pain.
[2018-01-22 16:01] VITALS: BP 129/73
--- NOTE | 2018-01-22 17:00 | NUR ---
Patient refused [place] due at this time and said he is not in pain.
--- NOTE | 2018-01-22 18:32 | NUR ---
Notified Dr. Ramos regarding patient refusing scheduled Ruth and per MD discontinue routine Ruth and keep the PRN Ruth. Patient made aware and agreeable.
[2018-01-22 20:00] VITALS: BP 126/68
[2018-01-22] MEDS: ATORVASTATIN 10 MG TABLET PO SCH (20:56)
[2018-01-22] MEDS: DOCUSATE SODIUM 100 MG CAPSULE PO SCH (20:56)
[2018-01-22] MEDS: ZOLPIDEM 5 MG TABLET PO PRN (23:17)
[2018-01-23] MEDS: HYDROCODONE/APAP 5-325MG TABLET PO PRN (03:38)
[2018-01-23] MEDS: PANTOPRAZOLE SODIUM 40 MG TABLET.DR PO SCH (06:37)
[2018-01-23] MEDS: BLOOD SUGAR DIAGNOSTIC 1 EACH STRIP VI SCH ×4 (06:39→21:50)
--- NOTE | 2018-01-23 07:21 | NUR ---
Patient noted sitting up in bed, noted at bedside, tylenol given on request for mild pain of 4/10, no signs of distress noted, call light placed in reach, bed locked and in lowest positon
[2018-01-23] MEDS: ASPIRIN 81 MG TAB.CHEW PO SCH (08:08)
[2018-01-23] MEDS: ACETAMINOPHEN 325 MG TABLET PO PRN ×2 (08:08→14:25)
[2018-01-23] MEDS: glipiZIDE 5 MG TABLET PO SCH ×3 (08:08→16:44)
[2018-01-23] MEDS: CHOLECALCIFEROL 1,000 UNIT TABLET PO SCH (08:09)
[2018-01-23] MEDS: GLUCERNA SHAKE VANILLA 237 ML CAN PO SCH ×3 (08:09→16:44)
[2018-01-23] MEDS: INSULIN REGULAR, HUMAN 300 UNIT/3 ML VIAL SQ PRN ×3 (08:14→16:48)
[2018-01-23] MEDS ORDERED: HYDROCORTISONE 1% CREAM 30 GM TUBE TP PRN (09:00)
[2018-01-23 20:00] VITALS: BP 132/77
[2018-01-23] MEDS: DOCUSATE SODIUM 100 MG CAPSULE PO SCH (21:44)
[2018-01-23] MEDS: ATORVASTATIN 10 MG TABLET PO SCH (21:44)
[2018-01-23] MEDS: ZOLPIDEM 5 MG TABLET PO PRN (22:52)
[2018-01-24] MEDS: diphenhydrAMINE 25 MG CAP PO PRN ×2 (03:59→23:09)
[2018-01-24] MEDS: PANTOPRAZOLE SODIUM 40 MG TABLET.DR PO SCH (06:26)
[2018-01-24 06:30] VITALS: BP 123/72
[2018-01-24] MEDS: BLOOD SUGAR DIAGNOSTIC 1 EACH STRIP VI SCH ×4 (06:37→21:35)
--- NOTE | 2018-01-24 08:19 | NUR ---
Patient noted sitting up in bed, noted at bedside, Tylenol given on request, no signs of distress noted, call light placed in reach, bed locked and in lowest positon, all needs met at this time
[2018-01-24] MEDS: ACETAMINOPHEN 325 MG TABLET PO PRN (08:20)
[2018-01-24] MEDS: glipiZIDE 5 MG TABLET PO SCH ×3 (08:20→17:48)
[2018-01-24] MEDS: ASPIRIN 81 MG TAB.CHEW PO SCH (08:20)
[2018-01-24] MEDS: CHOLECALCIFEROL 1,000 UNIT TABLET PO SCH (08:20)
[2018-01-24] MEDS: GLUCERNA SHAKE VANILLA 237 ML CAN PO SCH ×3 (08:21→17:48)
[2018-01-24] MEDS: INSULIN REGULAR, HUMAN 300 UNIT/3 ML VIAL SQ PRN ×3 (08:27→21:40)
[2018-01-24 08:45] VITALS: BP 115/68
--- NOTE | 2018-01-24 13:36 | NUR ---
INTERDISCIPLINARY TEAM CONFERENCE
[2018-01-24 13:45] VITALS: BP 110/66
[2018-01-24 16:27] LABS: BASOPHILS # (AUTO) 0.1 K/uL (0.0-8.0); BASOPHILS % (AUTO) 1.3 % (0.0-2.0); EOSINOPHILS # (AUTO) 0.1 K/uL (0.0-0.7); EOSINOPHILS % (AUTO) 1.4 % (0.0-7.0); HEMATOCRIT 32.2 % (36.7-47.1); HEMOGLOBIN 11.1 g/dL (12.5-16.3); LYMPHOCYTES # (AUTO) 1.5 K/uL (20.0-40.0); LYMPHOCYTES % (AUTO) 17.7 % (20.5-51.5); MEAN CORPUSCULAR HEMOGLOBIN 30.2 uug (23.8-33.4); MEAN CORPUSCULAR HGB CONC 34 g/dL (32.5-36.3); MEAN CORPUSCULAR VOLUME 87.9 fL (73.0-96.2); MONOCYTES % (AUTO) 11.3 % (0.0-11.0); NEUTROPHILS # (AUTO) 5.9 K/uL (1.8-8.9); NEUTROPHILS % (AUTO) 68.3 % (38.5-71.5); PLATELET COUNT (AUTO) 580 K/uL (152-348); RED BLOOD CELL COUNT(AUTO) 3.66 MIL/uL (4.06-5.63); WHITE BLOOD COUNT (AUTO) 8.7 K/uL (3.6-10.2)
[2018-01-24 16:40] LABS: ALANINE AMINOTRANSFERASE 38 U/L (16-63); ALKALINE PHOSPHATASE 123 U/L (50-136); ASPARTATE AMINOTRANSFERASE 24 U/L (15-37); BILIRUBIN,TOTAL 0.6 mg/dL (0.2-1.0); CARBON DIOXIDE 27 mmol/L (21-32); CHLORIDE 98 mmol/L (98-107); CREATININE 1.1 mg/dL (0.6-1.3); GLUCOSE 84 mg/dL (74-106); POTASSIUM 4.3 mmol/L (3.5-5.1); TOTAL PROTEIN, SERUM 6.8 g/dL (6.4-8.2); UREA NITROGEN, BLOOD 23 mg/dL (7-18)
--- NOTE | 2018-01-24 19:18 | NUR ---
KAT Patel notified of sodium level of 132 with no new orders
[2018-01-24 19:33] VITALS: BP 136/85
--- NOTE | 2018-01-24 19:45 | NUR ---
Patient received in bed. AAO X4. No acute distress or SOB noted. Able to makes needs known. On room air. His family were at the bedside. Brief assessment done. No Complain of pain at this time. His family asking to transfer the patient to the dinning room to sit with them for dinner. Assisted patient to the dinning room via wheelchair. Safety measures maintained. Continue to monitor.
[2018-01-24 19:52] LABS: *BILIRUBIN,URIN NEGATIVE (NEGATIVE); *BLOOD, URINE NEGATIVE (NEGATIVE); *CLARITY,URINE CLEAR (CLEAR); *COLOR,URINE YELLOW (YELLOW); *KETONES,URINE NEGATIVE (NEGATIVE); *PROTEIN,URINE NEGATIVE (NEGATIVE); *UROBILINOGEN,URINE 0.2 E.U./dl (NORMAL); LEUKOCYTE ESTERASE ,URINE NEGATIVE (NEGATIVE); NITRITE, URINE NEGATIVE (NEGATIVE); UGLUCOSE NEGATIVE (NEGATIVE)
[2018-01-24 19:53] LABS: RBC,URINE NONE SEEN /HPF (0-3); WBC,URINE 0-3 /HPF (0-3)
[2018-01-24 19:54] LABS: BACTERIA,URINE FEW /HPF (NONE SEEN); SQUAMOUS EPITHELIAL CELL,UR FEW /HPF (NONE SEEN)
[2018-01-24] MEDS: ATORVASTATIN 10 MG TABLET PO SCH (21:25)
[2018-01-24] MEDS: DOCUSATE SODIUM 100 MG CAPSULE PO SCH (21:25)
[2018-01-25] MEDS: ACETAMINOPHEN 325 MG TABLET PO PRN (04:56)
[2018-01-25 06:09] VITALS: BP 121/73
[2018-01-25] MEDS: BLOOD SUGAR DIAGNOSTIC 1 EACH STRIP VI SCH ×4 (06:37→21:54)
[2018-01-25] MEDS: PANTOPRAZOLE SODIUM 40 MG TABLET.DR PO SCH (06:37)
--- NOTE | 2018-01-25 06:44 | NUR ---
End of the shift note Patient was stable throughout the shift. VS stable. No sign of acute distress or SOB noted. On room air. Complained of pain. Medication given as ordered. Dressing removed, opened surgical site to the air, no sign of inflammation, no discharge noted. Safety measures maintained. Accucheck done, @ 2100 BS: 205, with 4 units insulin coverage based on sliding scale, @ 0700 BS: 129. Fall precaution maintained. kept him clean and dry. All needs attended promptly. Bed brake and alarm on, side rails upx2. Call light and personal belonging within reach. Continue to monitor and will endorse to the day shift nurse accordingly.
[2018-01-25 08:02] VITALS: BP 112/69
[2018-01-25] MEDS: ASPIRIN 81 MG TAB.CHEW PO SCH (08:07)
[2018-01-25] MEDS: glipiZIDE 5 MG TABLET PO SCH ×3 (08:07→16:22)
[2018-01-25] MEDS: CHOLECALCIFEROL 1,000 UNIT TABLET PO SCH (08:07)
[2018-01-25] MEDS: GLUCERNA SHAKE VANILLA 237 ML CAN PO SCH ×3 (08:10→16:22)
--- NOTE | 2018-01-25 09:44 | NUR ---
Received patient awake in bed in stable condition. not in distress. no complaint of pain/discomfort. will continue monitor
[2018-01-25] MEDS: INSULIN REGULAR, HUMAN 300 UNIT/3 ML VIAL SQ PRN ×2 (11:52→16:21)
[2018-01-25 16:28] VITALS: BP 118/63
[2018-01-25 20:00] VITALS: BP 126/72
--- NOTE | 2018-01-25 20:00 | NUR ---
SIGNING ON. REPORTED OFF & CARE ENDORSED BY DAY SHIFT RN REGARDING STATUS. A&OX. ABLE TO FOLLOW COMMANDS & SPEAK IN FULL SENTENCES. SPEECH CLEAR. DENIES ANY CP,SOB,ALCANTAR,N/V,DIZZINESS. RESPIRATIONS EVEN & UNLABORED W/ NO AMU. STRONG & EQUAL HAND SUPERVISING FILM OR VIDEOTAPE EDITOR & PEDAL PUSHES.NO FACIAL DROOP NOTED. S/P HIP REPLACEMENT & NOW AMBULATING & TOLERATING WELL ON FWW W/ VERY MINIMAL ASSIST. CONTINENT TO URINE & STOOL ALTHOUGH USING URINAL. WILL CONTINUE TO MONITOR.
[2018-01-25] MEDS: ATORVASTATIN 10 MG TABLET PO SCH (22:00)
[2018-01-25] MEDS: DOCUSATE SODIUM 100 MG CAPSULE PO SCH (22:01)
--- NOTE | 2018-01-26 | NUR ---
ASLEEP BUT AROUSABLE. DENIES ANY PAIN/DISTRESS. ABLE TO REPOSITION SELF IN BED W/ NO ASSIST. WILL CONTINUE TO MONITOR.
[2018-01-26 06:30] VITALS: BP 121/75
--- NOTE | 2018-01-26 07:00 | NUR ---
SIGNING OFF. REPORTED OFF & CARE ENDORSED TO DAY SHIFT LESLEY RN REGARDING STATUS.
[2018-01-26] MEDS: PANTOPRAZOLE SODIUM 40 MG TABLET.DR PO SCH (07:03)
[2018-01-26] MEDS: BLOOD SUGAR DIAGNOSTIC 1 EACH STRIP VI SCH ×4 (07:07→21:49)
[2018-01-26 07:30] VITALS: BP 124/76
[2018-01-26] MEDS: glipiZIDE 5 MG TABLET PO SCH ×3 (08:47→17:55)
[2018-01-26] MEDS: CHOLECALCIFEROL 1,000 UNIT TABLET PO SCH (08:47)
[2018-01-26] MEDS: ASPIRIN 81 MG TAB.CHEW PO SCH (08:47)
[2018-01-26] MEDS: INSULIN REGULAR, HUMAN 300 UNIT/3 ML VIAL SQ PRN ×3 (08:50→20:42)
--- NOTE | 2018-01-26 08:50 | NUR ---
Patient awake, alert, sitting up on bed, done with breakfast, not in any form of acute distress. No complain of pain or any discomfort at this time. Due medications given and tolerated well. Assisted with his needs. Call light placed within reach.
[2018-01-26] MEDS: GLUCERNA SHAKE VANILLA 237 ML CAN PO SCH ×3 (08:55→18:00)
[2018-01-26] MEDS: HYDROCODONE/APAP 5-325MG TABLET PO PRN (10:22)
[2018-01-26] MEDS: ACETAMINOPHEN 325 MG TABLET PO PRN ×2 (10:27→18:16)
[2018-01-26 16:00] VITALS: BP 113/70
--- NOTE | 2018-01-26 17:53 | NUR ---
Notified Jaycee Patel PATENT CLERK regarding patient's blood sugar of 87 and per PATENT CLERK hold glipizide if BS less than 100.
[2018-01-26 20:29] VITALS: BP 127/70
[2018-01-26] MEDS: DOCUSATE SODIUM 100 MG CAPSULE PO SCH (20:32)
[2018-01-26] MEDS: ATORVASTATIN 10 MG TABLET PO SCH (20:32)
[2018-01-26 21:05] VITALS: BP 146/62
[2018-01-26] MEDS: diphenhydrAMINE 25 MG CAP PO PRN (21:47)
[2018-01-27 05:40] VITALS: BP 113/73
[2018-01-27] MEDS: PANTOPRAZOLE SODIUM 40 MG TABLET.DR PO SCH (06:12)
[2018-01-27] MEDS: BLOOD SUGAR DIAGNOSTIC 1 EACH STRIP VI SCH ×4 (06:49→20:51)
[2018-01-27] MEDS: CHOLECALCIFEROL 1,000 UNIT TABLET PO SCH (08:14)
[2018-01-27] MEDS: glipiZIDE 5 MG TABLET PO SCH ×3 (08:14→16:27)
[2018-01-27] MEDS: ASPIRIN 81 MG TAB.CHEW PO SCH (08:14)
[2018-01-27] MEDS: GLUCERNA SHAKE VANILLA 237 ML CAN PO SCH ×3 (08:15→16:28)
[2018-01-27] MEDS: ACETAMINOPHEN 325 MG TABLET PO PRN ×2 (08:20→14:16)
[2018-01-27] MEDS: INSULIN REGULAR, HUMAN 300 UNIT/3 ML VIAL SQ PRN ×3 (08:24→20:57)
--- NOTE | 2018-01-27 10:00 | NUR ---
SBAR report received this morning, board updated. Pt assessed, no acute distress but requesting Tylenol for 5/10 pain prior to working with therapy. 2 tabs Tylenol administered per PRN orders. Pt compliant with routinely scheduled medication administration and cooperative with therapies as offered. Plan of care for today discussed, with included. All safety and comfort measures implemented. Bed in locked and lowest position with 2 side rails up. visiting at bedside. Call light and personal items placed within reach. Will continue to monitor.
--- NOTE | 2018-01-27 16:50 | NUR ---
All safety and comfort needs promptly met throughout this shift. 1st blood sugar prior to dinner 82. Pt given orange juice and cupcake from home. Blood sugar levels rechecked and improved to 100. Glipizide 5mg dose held due to low blood sugar. Pt reports feeling "slightly dizzy" but expresses willingness to eat dinner presented. Urinal emptied of 100 cc clear, yellow urine. Linens and gown changed. Pt clean and dry. Call light within reach. Will continue to monitor and endorse to oncoming cad application support specialist nurse.
--- NOTE | 2018-01-27 19:50 | NUR ---
Patient received in bed. AAO X4. No acute distress or SOB noted. Able to makes needs known. On room air. His was at the bedside. Brief assessment done. VS stable. Complained of a tolerable pain at this time. Safety measures maintained. Put DVT pump in place. Bed in low position, brake on, side rails upx2. Call light and personal belongings within reach. Continue to monitor.
[2018-01-27 20:00] VITALS: BP 133/79
[2018-01-27] MEDS: ATORVASTATIN 10 MG TABLET PO SCH (20:41)
[2018-01-27] MEDS: DOCUSATE SODIUM 100 MG CAPSULE PO SCH (20:41)
[2018-01-27] MEDS: diphenhydrAMINE 25 MG CAP PO PRN (21:50)
[2018-01-28] MEDS: PANTOPRAZOLE SODIUM 40 MG TABLET.DR PO SCH (06:40)
[2018-01-28] MEDS: BLOOD SUGAR DIAGNOSTIC 1 EACH STRIP VI SCH ×2 (06:43→11:29)
[2018-01-28 06:48] VITALS: BP 124/76
--- NOTE | 2018-01-28 06:54 | NUR ---
End of the shift note Patient was stable throughout the shift. VS stable. No sign of acute distress or SOB noted. On room air. No Complain of pain. Medication given as ordered. Safety measures maintained. Accucheck done, @ 2100 BS: 162, with 3 units insulin coverage based on sliding scale, @ 0700 BS: 144. Fall precaution maintained. kept him clean and dry. All needs attended promptly. Bed brake and alarm on, side rails upx2. Call light and personal belonging within reach. Continue to monitor and will endorse to the day shift nurse accordingly.
[2018-01-28] MEDS: glipiZIDE 5 MG TABLET PO SCH ×3 (08:09→16:24)
[2018-01-28] MEDS: ASPIRIN 81 MG TAB.CHEW PO SCH (08:09)
[2018-01-28] MEDS: ACETAMINOPHEN 325 MG TABLET PO PRN ×2 (08:09→20:48)
[2018-01-28] MEDS: CHOLECALCIFEROL 1,000 UNIT TABLET PO SCH (08:09)
[2018-01-28] MEDS: INSULIN REGULAR, HUMAN 300 UNIT/3 ML VIAL SQ PRN ×2 (08:16→12:00)
[2018-01-28] MEDS: GLUCERNA SHAKE VANILLA 237 ML CAN PO SCH ×3 (08:26→16:27)
--- NOTE | 2018-01-28 08:33 | NUR ---
SBAR report received this morning, board updated. VSS. Pt assessed, AAOx3, no acute distress or SOB noted. Pt reports pain of 5/10, requesting Tylenol as preferred method of PRN pain management. Pt compliant with PRN and routinely scheduled medication administration. BS 144 covered with 2 units of insulin. Pt cooperative with therapies as offered. Plan of care for today discussed with Pt and , who is visiting bedside. Bed in locked and lowest position, with side rails up x2. Bed alarm on. Call light and personal items within reach. Will continue to monitor.
--- NOTE | 2018-01-28 19:29 | NUR ---
No changes to Pt status. New orders received from accu checks d/c. Pt teaching provided and plan of care discussed with Pt and . All safety and comfort needs promptly attended to throughout this shift. Call light within reach, at bedside. Will continue to monitor and endorse to oncoming assistant casino shift manager nurse.
[2018-01-28 20:00] VITALS: BP 127/71
[2018-01-28] MEDS: DOCUSATE SODIUM 100 MG CAPSULE PO SCH (20:48)
[2018-01-28] MEDS: ATORVASTATIN 10 MG TABLET PO SCH (20:48)
[2018-01-28] MEDS: diphenhydrAMINE 25 MG CAP PO PRN (21:51)
[2018-01-29 04:00] VITALS: BP 119/69
[2018-01-29] MEDS: PANTOPRAZOLE SODIUM 40 MG TABLET.DR PO SCH (06:29)
[2018-01-29 08:06] VITALS: BP 115/70
--- NOTE | 2018-01-29 08:07 | NUR ---
Received pt. in bed with eyes open. Pt. A/OX4 and able to make his needs known. Denies CP, SOB, or pain at this time. All pt. needs promptly attended and met. Safety measure and precaution in place. Call light and all frequently used items in reach. Will monitor pt. accordingly.
[2018-01-29] MEDS: ASPIRIN 81 MG TAB.CHEW PO SCH (08:42)
[2018-01-29] MEDS: glipiZIDE 5 MG TABLET PO SCH ×3 (08:43→16:56)
[2018-01-29] MEDS: CHOLECALCIFEROL 1,000 UNIT TABLET PO SCH (08:43)
[2018-01-29] MEDS: ACETAMINOPHEN 325 MG TABLET PO PRN ×2 (08:43→21:29)
[2018-01-29] MEDS: GLUCERNA SHAKE VANILLA 237 ML CAN PO SCH ×3 (08:44→16:56)
[2018-01-29 15:55] VITALS: BP 123/67
--- NOTE | 2018-01-29 18:56 | NUR ---
EOS NOTE: No significant change during this shift. All pt. need attended. All due medications given as ordered. No c/o SOB or CP. Safety measures in place. Call light and all frequently used items in reach. Will endorse to oncoming shift.
[2018-01-29 19:30] VITALS: BP 119/64
[2018-01-29] MEDS: ATORVASTATIN 10 MG TABLET PO SCH (21:29)
[2018-01-29] MEDS: DOCUSATE SODIUM 100 MG CAPSULE PO SCH (21:29)
[2018-01-29] MEDS: diphenhydrAMINE 25 MG CAP PO PRN (22:36)
[2018-01-30 04:00] VITALS: BP 120/62
[2018-01-30] MEDS: PANTOPRAZOLE SODIUM 40 MG TABLET.DR PO SCH (06:19)
[2018-01-30 08:00] VITALS: BP 129/70
[2018-01-30] MEDS: CHOLECALCIFEROL 1,000 UNIT TABLET PO SCH (08:32)
[2018-01-30] MEDS: ASPIRIN 81 MG TAB.CHEW PO SCH (08:32)
[2018-01-30] MEDS: GLUCERNA SHAKE VANILLA 237 ML CAN PO SCH ×3 (08:33→16:21)
[2018-01-30] MEDS: glipiZIDE 5 MG TABLET PO SCH ×3 (08:34→16:21)
[2018-01-30] MEDS: ACETAMINOPHEN 325 MG TABLET PO PRN ×2 (08:50→22:21)
--- NOTE | 2018-01-30 09:14 | NUR ---
Received pt. in bed with eyes open. Pt. A/OX4 and able to make his needs known. Denies CP, SOB, or pain at this time. All pt. needs promptly attended and met. All due AM medications given as ordered and tolerated well. Spouse at bedside for support. Safety measure and precaution in place. Call light and all frequently used items in reach. Will monitor pt. accordingly
[2018-01-30 16:00] VITALS: BP 114/66
--- NOTE | 2018-01-30 18:13 | NUR ---
EOS NOTE: No significant change during this shift. All pt. need attended and met. All due medications given as ordered. No c/o SOB or CP. Pt. participated with PT/OT, tolerated well. Kept pt. clean and dry throughout this shift. Lt. hip surgical incision with no s/sx of infection. LT. hip x-ray done today for f/u appointment on 01/31/[address] Thomas (Ortho). CD (lt. hip x-ray) results placed in pt. chart. at bed side for emotional support. Safety measures in place. Call light and all frequently used items in reach. Will endorse to oncoming shift.
[2018-01-30 20:13] VITALS: BP 127/76
[2018-01-30] MEDS: DOCUSATE SODIUM 100 MG CAPSULE PO SCH (20:36)
[2018-01-30] MEDS: ATORVASTATIN 10 MG TABLET PO SCH (20:36)
[2018-01-30] MEDS: diphenhydrAMINE 25 MG CAP PO PRN (22:21)
[2018-01-31] MEDS: PANTOPRAZOLE SODIUM 40 MG TABLET.DR PO SCH (06:08)
[2018-01-31 06:44] VITALS: BP 118/72
--- NOTE | 2018-01-31 07:42 | NUR ---
RECEIVED AWAKE IN BED BETTING READY FOR MD APPT. P/U TIME 0815. Addendum: 01/31/18 at 0746 by Kassi Lindsey RN GETTING READY FOR MD APPT. AT [facility]
[2018-01-31 08:00] VITALS: BP 121/75
[2018-01-31] MEDS: CHOLECALCIFEROL 1,000 UNIT TABLET PO SCH (08:14)
[2018-01-31] MEDS: glipiZIDE 5 MG TABLET PO SCH ×3 (08:14→17:12)
[2018-01-31] MEDS: ASPIRIN 81 MG TAB.CHEW PO SCH (08:14)
[2018-01-31] MEDS: GLUCERNA SHAKE VANILLA 237 ML CAN PO SCH ×3 (08:20→17:12)
--- NOTE | 2018-01-31 13:35 | NUR ---
INTERDISCIPLINARY TEAM CONFERENCE
[2018-01-31 16:00] VITALS: BP 121/73
[2018-01-31 19:30] VITALS: BP 122/68
--- NOTE | 2018-01-31 20:00 | NUR ---
NSG: Received patient sitting up in bed. plesant upon on approach. family member at bedside. patient Alert and verbally responsive. Able to make needs known. Denies any pain and discomfort at this time. No acute distress. No SOB. Kept clean and dry. Call light within reach. Will continue to monitor.
[2018-01-31] MEDS: ATORVASTATIN 10 MG TABLET PO SCH (20:19)
[2018-01-31] MEDS: DOCUSATE SODIUM 100 MG CAPSULE PO SCH (20:19)
[2018-01-31] MEDS: diphenhydrAMINE 25 MG CAP PO PRN (22:17)
--- NOTE | 2018-01-31 22:18 | NUR ---
patient c/o itching. Benadryl 25 mg po given per patient requested.
--- NOTE | 2018-01-31 23:19 | NUR ---
patient stated feeling better.prn for itching effective.
[2018-01-31] MEDS: ACETAMINOPHEN 325 MG TABLET PO PRN (23:35)
[2018-02-01 04:00] VITALS: BP 132/69
--- NOTE | 2018-02-01 05:58 | NUR ---
nsg: remain calm and cooperative through the shift.tylenol 650 mg po given @ 2335pm for pain and effective. assisted to use urinal. no c/o pain or discomfort at this time. slept well.call light w/in reach.
[2018-02-01] MEDS: PANTOPRAZOLE SODIUM 40 MG TABLET.DR PO SCH (06:08)
[2018-02-01 08:00] VITALS: BP 120/78
[2018-02-01] MEDS: glipiZIDE 5 MG TABLET PO SCH ×2 (08:07→12:01)
[2018-02-01] MEDS: CHOLECALCIFEROL 1,000 UNIT TABLET PO SCH (08:09)
[2018-02-01] MEDS: ASPIRIN 81 MG TAB.CHEW PO SCH (08:09)
[2018-02-01] MEDS: GLUCERNA SHAKE VANILLA 237 ML CAN PO SCH ×2 (08:10→12:03)
[2018-02-01] MEDS: ACETAMINOPHEN 325 MG TABLET PO PRN (08:15)
[2018-02-01 14:34] VITALS: BP 124/71
--- NOTE | 2018-02-01 15:46 | NUR ---
PATIENT DC TO HOME WITH OUTPATIENT PT CARE. DC ORDER ON FILE. DC PICS TAKEN. DC INSTRUCTIONS GIVEN TO AND PATIENT. BOTH VERBALIZED UNDERSTANDING. TAKEN HOME VIA AMBULANCE. VITAL SIGNS STABLE AND NO ACUTE DISTRESS NOTED.
== END 2018-02-01 15:10 | disposition home health service (06) | DRG 560 ==
PROVIDERS: ADMIT Physical Medicine & Rehabilitation Pain Medicine; ATTEND Physical Medicine & Rehabilitation Pain Medicine
DX: S72.142D Displaced intertrochanteric fracture of left femur, subsequent encounter for closed fracture with routine healing (principal); D68.59 Other primary thrombophilia; E87.1 Hypo-osmolality and hyponatremia; W18.30XD Fall on same level, unspecified, subsequent encounter; D63.8 Anemia in other chronic diseases classified elsewhere; E11.9 Type 2 diabetes mellitus without complications; E78.5 Hyperlipidemia, unspecified; I10 Essential (primary) hypertension; Z79.4 Long term (current) use of insulin; R26.9 Unspecified abnormalities of gait and mobility; I70.0 Atherosclerosis of aorta; G47.00 Insomnia, unspecified; F41.9 Anxiety disorder, unspecified; R06.02 Shortness of breath
CPT/HCPCS: 36415; 71045; 73502; 82652; 83735; 84100; 85025; 87040; 92523; 92526; 92610; 97110; 97112; 97116; 97165; 97530; 97535; J1815; J7040; Q0163